=== PATIENT | female | born 1960 | race Caucasian/White ===

== ENCOUNTER 2019-05-20 15:52 | Inpatient (IN) | payer OTHER ==
[2019-05-20] MEDS: SOD CHLORIDE 0.9% 1,000 ML IV ×2 (18:46→22:16)
[2019-05-20] MEDS: HYDROmorphONE 1 MG/ML SYG IV (18:47)
[2019-05-20] MEDS: ONDANSETRON 4 MG INJ IV (18:47)
[2019-05-20] MEDS: CEFEPIME 1GM/50 ML (PMX) 50 ML IVPB (20:03)
[2019-05-20] MEDS: KETOROLAC 30 MG INJ IV (22:17)
[2019-05-20] MEDS ORDERED: ACETAMINOPHEN 325 MG TAB PO (22:30)
[2019-05-20] MEDS ORDERED: ONDANSETRON 4 MG INJ IV (22:30)
[2019-05-20] MEDS ORDERED: NACL 0.9% 3 ML SYG IV (22:30)
[2019-05-21] MEDS: morphine 4 MG/ML VIAL IV ×4 (00:12→18:35)
[2019-05-21] MEDS: CEFTRIAXONE 1 GM/50 ML (PMX) 50 ML IVPB (09:23)
[2019-05-21] MEDS: HEPARIN 5,000 UNIT/1 ML VIAL SC (09:23)
[2019-05-21] MEDS: SOD CHLORIDE 0.9% 1,000 ML IV ×2 (09:24→17:07)
== END 2019-05-21 18:55 | disposition home or self-care (01) | DRG 690 ==
LOC: E/R 15:52 → PP2 19:18
DX: N39.0 Urinary tract infection, site not specified (principal); Z93.6 Other artificial openings of urinary tract status; N20.0 Calculus of kidney; B96.20 Unspecified Escherichia coli [E. coli] as the cause of diseases classified elsewhere; N26.1 Atrophy of kidney (terminal); F41.9 Anxiety disorder, unspecified; F17.200 Nicotine dependence, unspecified, uncomplicated
CPT/HCPCS: 36415; 74176; 80053; 81001; 81025; 83690; 83735; 84100; 85025; 85610; 85730; 87086; 96374; 96375; 99285-25